=== PATIENT | female | born 1955 | race African-American/Black ===

== ENCOUNTER → 2016-09-19 14:25 | Outpatient (CLI) | payer BC ==
[2014-05-12 12:29] VITALS: BMI 30.1
[~2016-09-19 14:25] MED LIST: ALEVE220 MG PO; CRESTOR5 MG PO; PEPCID40 MG PO
== END | disposition home or self-care (01) ==
LOC: D.MRI 14:25
DX: M54.16 Radiculopathy, lumbar region (principal)

== ENCOUNTER 2018-03-06 08:00 | Outpatient (CLI) | payer BC ==
[2014-05-12 12:29] VITALS: BMI 30.1
== END 2018-03-06 09:00 | disposition home or self-care (01) ==
LOC: D.MAMMO 08:00
DX: Z12.31 Encounter for screening mammogram for malignant neoplasm of breast (principal)

== ENCOUNTER → 2019-04-01 23:00 | Outpatient (CLI) | payer BC ==
[2014-05-12 12:29] VITALS: BMI 30.1
== END | disposition home or self-care (01) ==
LOC: D.MAMMO 13:15
PROVIDERS: ATTEND Family Medicine
DX: Z12.31 Encounter for screening mammogram for malignant neoplasm of breast (principal)

== ENCOUNTER 2020-02-16 18:12 | Emergency (ER) | payer BC ==
[2014-05-12 12:29] VITALS: Ht 177.8 cm; Wt 90.9 kg
[~2020-02-16] VITALS: Ht 177.8 cm; Wt 90.9 kg
[2020-02-16] MEDS ORDERED: IBUPROFEN800 MG PO (18:33)
[2020-02-16] MEDS ORDERED: SKELAXIN800 MG PO (18:33)
[2020-02-16] MEDS ORDERED: OXYBUTYNIN CHLOR5 MG PO (18:34)
[2020-02-16] MEDS ORDERED: TYLENOL W/CODEI1 TAB PO (20:10)
[2020-02-16] MEDS ORDERED: BACLOFEN10 MG PO (20:10)
[2020-02-16 20:30] VITALS: BP 136/74
== END 2020-02-16 20:29 | disposition home or self-care (01) ==
LOC: D.ER 18:12
DX: M51.36 Other intervertebral disc degeneration, lumbar region (principal); M54.9 Dorsalgia, unspecified; R53.1 Weakness; R20.2 Paresthesia of skin